=== PATIENT | female | born 1960 | race Caucasian/White ===

== ENCOUNTER 2016-09-02 10:28 | Observation (INO) | payer OTHER ==
[2016-08-26 21:26] LABS: BASOPHILS 0.2 %; BASOPHILS ABSOLUTE 0.01 10/3/uL (0.0-0.16); EOSINOPHILS 5.5 %; EOSINOPHILS ABSOLUTE 0.24 10/3/uL (0.0-0.53); HEMATOCRIT 37.2 % (36.0-48.0); HEMOGLOBIN 11.7 g/dL (12.0-16.0); IMMATURE GRANULOCYTES 0.2 %; IMMATURE GRANULOCYTES ABSOLUTE 0.01 10/3/uL (0.0-0.11); LYMPHOCYTES 15.8 %; LYMPHOCYTES ABSOLUTE 0.69 10/3/uL (0.67-4.30); MEAN CORPUS HGB CONC 31.5 g/dL (32.0-36.0); MEAN CORPUSCULAR HEMOGLOB 28.5 pg (26.0-34.0); MEAN CORPUSCULAR VOLUME 90.7 fL (80-100); MEAN PLATELET VOLUME 9.2 fL (9.2-13.0); MONOCYTES 4.6 %; NEUTROPHILS 73.7 %; NEUTROPHILS ABSOLUTE 3.22 10/3/uL (2.02-8.40); PLATELET COUNT 240 10/3/uL (150-400); RBC DISTRIBUTION WIDTH 12.7 % (12.0-16.0); WHITE BLOOD CELLS 4.4 10/3/uL (4.5-10.5)
[2016-08-26 21:27] LABS: MANUAL DIFF NO %
[2016-08-26 21:32] LABS: ASCORBIC ACID (UR NOT ORDER) 40 (NEG); BILIRUBIN, URINE NEGATIVE (NEG); KETONE, URINE NEGATIVE (NEG); LEUKOCYTE ESTERASE(NOT OR MOD (NEG); WBC (NOT ORDERED) (RFLEX) 39 (0-5)
[2016-08-26 21:35] LABS: PARTIAL THROMBO TIME 26.3 SEC (22.5-37.2); PROTIME (NOT ORD) 13.3 SEC (12.0-14.5)
[2016-08-26 21:36] LABS: BUN (BLOOD UREA NITROGEN) 13 MG/DL (6-23); CALCIUM, SERUM 9.1 MG/DL (8.5-10.4); CHLORIDE, SERUM 107 MMOL/L (96-112); CO2 (CARBON DIOXIDE) 30 MMOL/L (24-34); CREATININE 1.07 MG/DL (0.55-1.02); GFR AFRICAN AMERICAN 68 ML/MIN (>=60); GFR NON AFRICAN AMERICAN 58 ML/MIN (>=60); GLUCOSE, SERUM 160 MG/DL (60-99); POTASSIUM, SERUM 4.1 MMOL/L (3.5-5.3); SODIUM, SERUM 141 MMOL/L (135-148)
--- NOTE | ~2016-09-02 | OP ---
Record Of Operation [facility] [address] [place]. 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 PROCEDURES: 1. Laparoscopic hysterectomy with bilateral salpingo-oophorectomy via the da William laparoscopic robotic instrument, CPT code 34863. 2. Pelvic lymph node sampling, CPT code 20819. 3. Injection of indocyanine green for sentinel lymph node identification, CPT code 68065. SURGEON: Magdy Schmidt M.D. CORRECTIONAL PROGRAM OFFICER: Marycarmen Salgado MD. ESTIMATED BLOOD LOSS: 50 mL. FLUIDS IN: 2000 mL of crystalloid. COMPLICATIONS: None. INDICATION AND FINDINGS: This is a 56-year-old female who has recently been diagnosed with stage IIA cervical carcinoma. She began treatment with a combination of radiation to the site with cisplatin chemotherapy. She developed an infection in her [id number], requiring long-term antibiotics and admission to the rehab facility. During that time, she did not receive any radiation or chemotherapy. Approximately, eight-week interval had passed and she resumed radiation therapy alone and declined chemotherapy. Because of the suboptimal treatment and after discussing her case with the radiation oncologist, Dr. Mary Dougherty, a decision was made to proceed with removing the uterus. The uterus was removed without difficulty or complication. There was no gross evidence of disease remaining. She was injected with indocyanine green. Her sentinel lymph nodes were identified only on the right side of the pelvis and they were removed and sent to Pathology. There was no tracking on the left side of the pelvis, therefore, no lymph node was taken. Postprocedure, a cystoscopy was performed with excellent bilateral ureteral jets. No evidence of bladder defect. Prior to the induction of anesthesia, the patient was treated with Lovenox for DVT prophylaxis. PROCEDURE IN DETAIL: The patient was taken to the operating room. She was placed in supine position for administration of general anesthesia. She was then placed in dorsal lithotomy position and prepped and draped in the usual sterile fashion. A BOOM uterine manipulator was placed through the uterine cervix and out of the fundus, and a PIOTR ring was sutured to the patient's cervix. The cervix was easily identified and it was injected with indocyanine green at the 3 and 9 o'clock position, approximately 4 mL total. Our attention was then turned towards the anterior abdominal wall where an incision was made approximately 25 cm Record Of Operation [facility] [address] [place]. [address] NAME: JOB SINGH : 62 STATUS : ADM [place] PAT#: [id number] AGE: 56 ADM/REG DATE : 09/02/16 MR#: [id number] REPORT SERV DATE: 09/02/16 DICTATED BY: MAGDY SCHMIDT DATE: 09/02/16 REPORT STATUS : Draft TRANSCRIBED BY: MODL DATE: 09/02/16 above the pubic symphysis and taken down to the underlying layer of fascia. The fascia was grasped with two sutures of 0 Vicryl, tented up and entered sharply. The peritoneum was then tented up and entered sharply, and a laparoscopic trocar was placed under direct visualization. The abdominal cavity was insufflated with CO2. Two additional 8 mm trocars were placed, one additional 12 mm trocar was placed. The patient was then docked to the laparoscopic robotic instrument and the remainder of the procedure was performed via the da William, the above findings were noted. Pelvic washings were taken. The retroperitoneal spaces were opened via the round ligaments, which were grasped with bipolar cautery, cauterized and transected bilaterally. The round ligaments were grasped bilaterally and transected. The retroperitoneal spaces were opened. The ureter and pelvic vessels were clearly identified. The gonadal vessels were isolated. Hemoclips were placed to ensure long-term hemostasis, they were then coagulated and transected bilaterally. The uterine arteries were identified at their origin and Hemoclips were placed to ensure long-term hemostasis. Anteriorly, a bladder flap was created and taken down to a level well below the cervix. On the patient's right, external iliac lymph node did glide up and was consistent with a sentinel lymph node and therefore was removed. Additional lymph nodes in the area were also removed. Her lymph nodes were consistent with her previous radiation therapy. The uterine arteries were then skeletonized to the level of the cervix, grasped with bipolar cautery, cauterized and transected bilaterally. The uterosacral cardinal complex was then taken down with unipolar cautery and a circumferential incision was made around the cervix and vagina and the uterus, tubes, ovaries, and cervix were delivered through the vagina with the above findings noted. The vaginal cuff was then closed using a running stitch of #1 PDS V-Loc. The pelvis was irrigated with copious amounts of warm water. All pedicles were inspected and found to be hemostatic. Evicel was placed onto the lymph node biopsy in retroperitoneal spaces to ensure long-term hemostasis. The laparoscopic instruments were removed. The gas was expelled from the abdomen. The initial incision was closed with 0 Vicryl at the fascia. The remainder of the incisions were closed with 4-0 Vicryl at the skin and Dermabond was placed. Postprocedure, a cystoscopy was performed with excellent bilateral ureteral jets. No evidence of bladder defect. At the completion of the procedure, the anesthesia was reversed. The patient was extubated and brought to the recovery room in stable condition. CHLOÉ/ZEB Magdy Schmidt M.D. / [id number] CC: Magdy Schmidt M.D.
[~2016-09-02 10:28] MED LIST: GLUMETZA1000 MG PO; HEMOCYTE324 MG PO; NORCO1 TAB PO; PRIN20 PO
[2016-09-03 06:05] LABS: BUN (BLOOD UREA NITROGEN) 11 MG/DL (6-23); CALCIUM, SERUM 8.4 MG/DL (8.5-10.4); CHLORIDE, SERUM 110 MMOL/L (96-112); CO2 (CARBON DIOXIDE) 29 MMOL/L (24-34); GFR AFRICAN AMERICAN 73 ML/MIN (>=60); GFR NON AFRICAN AMERICAN 63 ML/MIN (>=60); POTASSIUM, SERUM 4.4 MMOL/L (3.5-5.3); SODIUM, SERUM 143 MMOL/L (135-148)
[2016-09-03 06:07] LABS: GLUCOSE, SERUM 125 MG/DL (60-99)
[2016-09-03 06:12] LABS: BASOPHILS 0.1 %; BASOPHILS ABSOLUTE 0.01 10/3/uL (0.0-0.16); EOSINOPHILS 0.1 %; EOSINOPHILS ABSOLUTE 0.01 10/3/uL (0.0-0.53); HEMATOCRIT 32.9 % (36.0-48.0); HEMOGLOBIN 10.9 g/dL (12.0-16.0); IMMATURE GRANULOCYTES 0.2 %; IMMATURE GRANULOCYTES ABSOLUTE 0.02 10/3/uL (0.0-0.11); LYMPHOCYTES 5.5 %; LYMPHOCYTES ABSOLUTE 0.55 10/3/uL (0.67-4.30); MANUAL DIFF NO %; MEAN CORPUS HGB CONC 33.1 g/dL (32.0-36.0); MEAN CORPUSCULAR VOLUME 87.5 fL (80-100); MEAN PLATELET VOLUME 9.1 fL (9.2-13.0); MONOCYTES 4.3 %; MONOCYTES ABSOLUTE 0.43 10/3/uL (0.21-1.20); NEUTROPHILS 89.8 %; NEUTROPHILS ABSOLUTE 8.91 10/3/uL (2.02-8.40); PLATELET COUNT 202 10/3/uL (150-400); RBC DISTRIBUTION WIDTH 12.4 % (12.0-16.0); RED CELL COUNT 3.76 10/6/uL (4.0-5.6); WHITE BLOOD CELLS 9.9 10/3/uL (4.5-10.5)
[2016-09-03] MEDS ORDERED: ZOFRAN4 PO (09:14)
[2016-09-03] MEDS ORDERED: PCET PO (09:16)
== END 2016-09-04 13:22 | disposition home or self-care (01) ==
LOC: SDC 10:28 → SDC/OF 18:07 → 4EA 19:29
PROVIDERS: Obstetrics & Gynecology Gynecologic Oncology
PROC: 0UT24ZZ Resection of Bilateral Ovaries, Percutaneous Endoscopic Approach (ICD-10-PCS; 2016-09-02)
PROC: 0UT74ZZ Resection of Bilateral Fallopian Tubes, Percutaneous Endoscopic Approach (ICD-10-PCS; 2016-09-02)
PROC: 07TC4ZZ Resection of Pelvis Lymphatic, Percutaneous Endoscopic Approach (ICD-10-PCS; 2016-09-02)
PROC: 0UT94ZZ Resection of Uterus, Percutaneous Endoscopic Approach (ICD-10-PCS; principal; 2016-09-02 12:00)
PROC: 0UTC4ZZ Resection of Cervix, Percutaneous Endoscopic Approach (ICD-10-PCS; 2016-09-02 12:00)
DX: C53.0 Malignant neoplasm of endocervix (principal); N85.8 Other specified noninflammatory disorders of uterus; I10 Essential (primary) hypertension; E11.9 Type 2 diabetes mellitus without complications; Z90.49 Acquired absence of other specified parts of digestive tract; Z86.711 Personal history of pulmonary embolism; Z92.21 Personal history of antineoplastic chemotherapy; Z92.3 Personal history of irradiation; Z86.010 Personal history of colon polyps; Z79.84 Long term (current) use of oral hypoglycemic drugs; Z79.899 Other long term (current) drug therapy; Z98.890 Other specified postprocedural states
CPT/HCPCS: 36415; 71275; 80048; 81001; 82962; 85025; 85610; 85730; 86850; 86900; 86901; 87086; 88307; 88309; 88341; 88342; 93005; A9270-GY; G0378; J0694; J2250; J2405; J2550; J2710; J2795; J3010; Q9967